=== PATIENT | male | born 1995 | race Caucasian/White ===

== ENCOUNTER 2020-02-02 19:12 | Emergency (ER) | payer OTHER ==
[2020-02-02] MEDS ORDERED: LIDOCAINE HCL 1% 20 ML VIAL ONE (19:34)
== END 2020-02-02 21:02 | disposition home or self-care (01) ==
LOC: EDH 19:12
DX: S81.011A Laceration without foreign body, right knee, initial encounter (principal); Z88.8 Allergy status to other drugs, medicaments and biological substances; W26.8XXA Contact with other sharp object(s), not elsewhere classified, initial encounter; Y93.89 Activity, other specified; Y92.89 Other specified places as the place of occurrence of the external cause; Y99.8 Other external cause status
CPT/HCPCS: 12001; 73562